=== PATIENT | female | born 1940 | race Caucasian/White ===

== ENCOUNTER 2017-05-15 09:55 | Emergency (ER) | payer MEDICARE, MEDICAID ==
[~2017-05-15] VITALS: Ht 170.2 cm; Wt 70.0 kg
[~2017-05-15 09:55] MED LIST: ASCO500C12 PO; CEPH-357 PO; FERR47.53 PO; IMO2C PO; PARO30TA73 PO; SENN-28 PO; ZOF4T PO
[2017-05-15 11:10] LABS: INR 0.9 INR; PARTIAL THROMBOPLASTIN TIME 23 SECONDS (22-32); PROTHROMBIN TIME 9.7 SECONDS (9.0-12.0)
[2017-05-15 11:19] LABS: ANION GAP 9 (8-16); BILIRUBIN,TOTAL 0.3 MG/DL (0.1-1.0); BLOOD UREA NITROGEN 16 MG/DL (7-18); BUN/CREATININE RATIO 13.7 (6.6-38.0); CALCIUM 9.1 MG/DL (8.5-10.1); CHLORIDE 106 MMOL/L (99-107); CREATININE 1.17 MG/DL (0.40-0.90); GLUCOSE 87 MG/DL (70-104); POTASSIUM 4.3 MMOL/L (3.5-5.1); SODIUM 141 MMOL/L (135-145); TOTAL CARBON DIOXIDE 26.4 MMOL/L (24-32); TOTAL PROTEIN 7.5 G/DL (6.4-8.2); eGFR 45 ML/MIN
[2017-05-15 11:20] LABS: ALANINE AMINOTRANSFERASE 20 U/L (12-78); ALBUMIN/GLOBULIN RATIO 0.7 (1.1-1.5); ALKALINE PHOSPHATASE 85 IU/L (46-116); ASPARTATE AMINO TRANSFERASE 17 U/L (10-37)
[2017-05-15 12:02] LABS: BASOPHILS # (AUTO) 0.2 X10'3 (0-0.2); BASOPHILS % (AUTO) 1.4 % (0-1); EOSINOPHILS # (AUTO) 0.2 X10'3 (0-0.9); HEMATOCRIT 34.5 % (35.0-45.0); HEMOGLOBIN 11.1 g/dl (12.0-16.0); LYMPHOCYTES # (AUTO) 1.7 X10'3 (1.1-4.8); LYMPHOCYTES % (AUTO) 14.5 % (21-51); MEAN CORPUSCULAR HEMOGLOBIN 19.6 PG (27.0-31.0); MEAN CORPUSCULAR HGB CONC 32.3 % (33.0-36.5); MEAN CORPUSCULAR VOLUME 60.6 FL (78-98); MEAN PLATELET VOLUME 8.2 FL (7.4-10.4); MONOCYTES # (AUTO) 0.7 X10'3 (0-0.9); MONOCYTES % (AUTO) 5.8 % (2-12); NEUTROPHILS # (AUTO) 8.8 X10'3 (1.8-7.7); NEUTROPHILS % (AUTO) 76.3 % (42-75); PLATELET COUNT 325 X10'3 (140-440); RED BLOOD COUNT 5.68 X10'6 (4.20-5.60); RED CELL DISTRIBUTION WIDTH 16.8 % (11.5-14.5); WHITE BLOOD COUNT 11.5 X10'3 (4.5-11.0)
[2017-05-15] MEDS ORDERED: LIDOcaine 5% patch TP ONE (12:50)
[2017-05-15 13:17] VITALS: BP 143/65
== END 2017-05-15 13:33 | disposition home or self-care (01) ==
LOC: ER 09:55
DX: M54.5 Low back pain (principal); I95.9 Hypotension, unspecified; R07.9 Chest pain, unspecified; Z79.899 Other long term (current) drug therapy; Z88.5 Allergy status to narcotic agent
CPT/HCPCS: 36415; 71045; 72100; 80053; 84484; 85025; 85610; 85730; 93005; 99285

== ENCOUNTER 2018-10-23 12:17 | Inpatient (IN) | payer MEDICARE, MEDICAID ==
[~2018-10-23] VITALS: Ht 160 cm; Wt 74.0 kg
[2018-10-23 12:55] LABS: BASOPHILS # (AUTO) 0.1 X10'3 (0-0.2); EOSINOPHILS # (AUTO) 0.3 X10'3 (0-0.9); EOSINOPHILS % (AUTO) 3.1 % (0-6); HEMATOCRIT 33.8 % (35.0-45.0); HEMOGLOBIN 10.6 g/dl (12.0-16.0); LYMPHOCYTES # (AUTO) 1.4 X10'3 (1.1-4.8); LYMPHOCYTES % (AUTO) 16.5 % (21-51); MEAN CORPUSCULAR HEMOGLOBIN 19.2 PG (27.0-31.0); MEAN CORPUSCULAR HGB CONC 31.3 g/dL (33.0-36.5); MEAN CORPUSCULAR VOLUME 61.2 FL (78-98); MEAN PLATELET VOLUME 8.5 FL (7.4-10.4); MONOCYTES # (AUTO) 0.6 X10'3 (0-0.9); MONOCYTES % (AUTO) 7.3 % (2-12); NEUTROPHILS # (AUTO) 6.3 X10'3 (1.8-7.7); NEUTROPHILS % (AUTO) 72.1 % (42-75); PLATELET COUNT 358 X10'3 (140-440); RED BLOOD COUNT 5.53 X10'6 (4.20-5.60); RED CELL DISTRIBUTION WIDTH 16.8 % (11.5-14.5); WHITE BLOOD COUNT 8.7 X10'3 (4.5-11.0)
[2018-10-23 13:20] LABS: ALANINE AMINOTRANSFERASE 16 U/L (12-78); ALBUMIN 2.9 G/DL (3.4-5.0); ALBUMIN/GLOBULIN RATIO 0.7 (1.1-1.5); ALKALINE PHOSPHATASE 85 IU/L (46-116); ANION GAP 8 (8-16); ASPARTATE AMINO TRANSFERASE 14 U/L (10-37); BILIRUBIN,TOTAL 0.2 MG/DL (0.1-1.0); BLOOD UREA NITROGEN 17 MG/DL (7-18); BUN/CREATININE RATIO 15.6 (6.6-38.0); CALCIUM 8.6 MG/DL (8.5-10.1); CHLORIDE 103 MMOL/L (99-107); CREATININE 1.09 MG/DL (0.40-0.90); GLUCOSE 99 MG/DL (70-104); POTASSIUM 4.3 MMOL/L (3.5-5.1); SODIUM 140 MMOL/L (135-145); TOTAL CARBON DIOXIDE 29.3 MMOL/L (24-32); eGFR 48 ML/MIN
[2018-10-23] MEDS ORDERED: furosemide 40mg/4ml inj IV ONE (13:20)
[2018-10-23 13:22] LABS: D-DIMER 1.02 MG/L FEU (0-0.50); PARTIAL THROMBOPLASTIN TIME 28 SECONDS (22-32)
[2018-10-23] MEDS ORDERED: iohexol 350MG/ML 100ml bottle IV ONE (13:57)
[2018-10-23 14:22] LABS: CLARITY,URINE SLIGHTLY CLOUDY (Clear); COLOR,URINE STRAW (Yellow); GLUCOSE, URINE NEGATIVE (Neg); KETONES,URINE NEGATIVE (Neg); LEUKOCYTE ESTERASE ,URINE TRACE (Neg); NITRITES, URINE POSITIVE (Neg); OCCULT BLOOD,URINE NEGATIVE (Neg); PROTEIN,URINE NEGATIVE (Neg); UROBILINOGEN,URINE 0.2 E.U/dL (0.2-1.0)
[2018-10-23 14:36] LABS: UA COLLECTION TYPE NON-SPECIFIED
[2018-10-23 14:45] LABS: BACTERIA,URINE 4+ /HPF (Neg); RBC,URINE 0-2 /HPF (0-2); WBC,URINE 30-50 /HPF (0-4)
[2018-10-23 14:46] LABS: SQUAMOUS EPITHELIAL CELL,UR MODERATE /LPF (FEW); WBC CLUMPS,URINE FEW /HPF (NEGATIVE)
[2018-10-23 14:48] LABS: ANISOCYTOSIS 1+; MICROCYTOSIS 2+; PLATELET ESTIMATE NORMAL
[2018-10-23 14:49] LABS: TARGET CELLS FEW
[2018-10-23 14:50] LABS: HYPOCHROMASIA 2+
[2018-10-23] MEDS ORDERED: mag hydrox/Alum hydrox/simeth 30ml oral suspension PO PRN (15:55)
[2018-10-23] MEDS ORDERED: ondansetron/PF 4mg/2ml inj IV PRN (15:55)
[2018-10-23] MEDS ORDERED: acetaminophen 325mg tablet PO PRN (15:55)
[2018-10-23] MEDS ORDERED: magnesium hydroxide 30ml (MOM) UD suspension PO PRN (15:55)
[2018-10-23] MEDS ORDERED: MULT-955 PO (17:06)
[2018-10-23] MEDS ORDERED: [UNRECOGNIZED DRUG - OTHER] OP (17:07)
[2018-10-23] MEDS ORDERED: CARB15DR OP (17:09)
[2018-10-23] MEDS ORDERED: polyvinyl alcohol ophthalmic drops 15ml bottle EACHEYE PRN (17:35)
[2018-10-23 18:00] VITALS: BP 125/71
--- NOTE | 2018-10-23 18:10 | NUR ---
Patient in room PCU 3027. I have received report from Georgina and had the opportunity to ask questions and assume patient care.
[2018-10-23 18:27] VITALS: BP 150/71
--- NOTE | 2018-10-23 18:30 | NUR ---
Problems reprioritized. Patient report given, questions answered & plan of care reviewed with Quita.
--- NOTE | 2018-10-23 18:44 | NUR ---
Patient in room PCU 3027. I have received report from Joanne GRAY and had the opportunity to ask questions and assume patient care.
[2018-10-23] MEDS ORDERED: carVEDilol 3.125mg tablet PO SCH (20:00)
[2018-10-23] MEDS ORDERED: heparin, porcine 5000 units/ml vial SQ SCH (20:00)
--- NOTE | 2018-10-23 20:12 | NUR ---
critical trop 0.67, Dr. Bess awared, he gave order of EKG and next trop to be due in the morning
[2018-10-23] MEDS: normal saline 1000ml 1,000 ML IV SCH (20:33)
[2018-10-23] MEDS: loperamide 2mg capsule PO SCH ×3 (20:34→23:00)
[2018-10-23] MEDS: ondansetron 4mg rapidly disintigrating tab PO SCH (20:34)
[2018-10-23] MEDS: enoxaparin 80mg/0.8ml syringe SUBCUT SCH (20:37)
[2018-10-23 23:00] VITALS: BP 124/54
[2018-10-24] MEDS: loperamide 2mg capsule PO SCH ×5 (01:00→09:00)
[2018-10-24] MEDS: normal saline 1000ml 1,000 ML IV SCH ×2 (01:55→07:26)
[2018-10-24] MEDS: ondansetron 4mg rapidly disintigrating tab PO SCH ×4 (02:44→21:10)
[2018-10-24 05:02] LABS: BASOPHILS # (AUTO) 0.1 X10'3 (0-0.2); BASOPHILS % (AUTO) 1.5 % (0-1); EOSINOPHILS # (AUTO) 0.4 X10'3 (0-0.9); HEMOGLOBIN 10.9 g/dl (12.0-16.0); LYMPHOCYTES % (AUTO) 33.8 % (21-51); MEAN CORPUSCULAR HEMOGLOBIN 19.5 PG (27.0-31.0); MEAN CORPUSCULAR HGB CONC 32.2 g/dL (33.0-36.5); MEAN CORPUSCULAR VOLUME 60.7 FL (78-98); MEAN PLATELET VOLUME 8.9 FL (7.4-10.4); MONOCYTES # (AUTO) 0.7 X10'3 (0-0.9); MONOCYTES % (AUTO) 8.2 % (2-12); NEUTROPHILS # (AUTO) 4.7 X10'3 (1.8-7.7); NEUTROPHILS % (AUTO) 52.5 % (42-75); PLATELET COUNT 373 X10'3 (140-440); RED CELL DISTRIBUTION WIDTH 16.7 % (11.5-14.5)
[2018-10-24 05:23] LABS: ANION GAP 10 (8-16); BLOOD UREA NITROGEN 20 MG/DL (7-18); CALCIUM 8.7 MG/DL (8.5-10.1); CHLORIDE 105 MMOL/L (99-107); CHOL/HDL RATIO 4.6 (0.00-4.99); CHOLESTEROL 265 MG/DL (0-200); CREATININE 1.11 MG/DL (0.40-0.90); GLUCOSE 87 MG/DL (70-104); HDL CHOLESTEROL 58 MG/DL (35-60); LDL CHOLESTEROL 191 MG/DL (50-100); POTASSIUM 3.8 MMOL/L (3.5-5.1); SODIUM 143 MMOL/L (135-145); TRIGLYCERIDES 71 MG/DL (20-135); eGFR 47 ML/MIN
--- NOTE | 2018-10-24 06:25 | NUR ---
Problems reprioritized. Patient report given, questions answered & plan of care reviewed with Joanne GRAY.
[2018-10-24 06:29] LABS: PLATELET ESTIMATE NORMAL
[2018-10-24 06:30] LABS: ANISOCYTOSIS 1+; MICROCYTOSIS 2+; POLYCHROMASIA FEW
[2018-10-24 06:31] LABS: HYPOCHROMASIA 2+; SCHISTOCYTES FEW
--- NOTE | 2018-10-24 06:34 | NUR ---
Patient in room PCU 3012. I have received report from [facility] and had the opportunity to ask questions and assume patient care.
[2018-10-24 07:00] VITALS: BP 135/49
[2018-10-24] MEDS: multivitamins, therapeutics tablet PO SCH (07:23)
[2018-10-24] MEDS: sennosides 8.6mg tablet PO SCH (07:24)
[2018-10-24] MEDS: atorvastatin 20mg tablet PO SCH (07:24)
[2018-10-24] MEDS: aspirin 81mg tablet.DR PO SCH (07:25)
[2018-10-24] MEDS: ascorbic acid 500mg tablet PO SCH (07:25)
[2018-10-24] MEDS: ferrous sulfate 325mg tablet PO SCH (07:25)
[2018-10-24] MEDS: enoxaparin 80mg/0.8ml syringe SUBCUT SCH ×2 (07:26→21:16)
[2018-10-24] MEDS ORDERED: FERROUS SULFATE 325 MG PO SCH (08:00)
[2018-10-24] MEDS ORDERED: non-formulary drug (Multivitamin (Daily Value) 1 TAB) PO SCH (08:00)
[2018-10-24] MEDS ORDERED: loperamide 2mg capsule PO PRN (10:45)
[2018-10-24 11:00] VITALS: BP 149/58
[2018-10-24 15:00] VITALS: BP 139/61
[2018-10-24 18:00] VITALS: BP 150/61
--- NOTE | 2018-10-24 18:23 | NUR ---
Problems reprioritized. Patient report given, questions answered & plan of care reviewed with Quita GRAY .
--- NOTE | 2018-10-24 18:23 | NUR ---
I have reviewed and agree with all interventions, assessments performed and documented by Olesya GRAY.
--- NOTE | 2018-10-24 19:17 | NUR ---
Patient in room PCU 3027. I have received report from Joanne GRAY and had the opportunity to ask questions and assume patient care.
--- NOTE | 2018-10-24 19:18 | NUR ---
Dr. Cuellar went and saw pt, gave out verbal order of coreg, spironolacton 25mg daily, losartan 25mf daily
[2018-10-24] MEDS: carVEDilol 3.125mg tablet PO SCH (21:16)
[2018-10-24 23:00] VITALS: BP 115/75
[2018-10-25 02:00] VITALS: BP 135/60
[2018-10-25] MEDS: ondansetron 4mg rapidly disintigrating tab PO SCH ×3 (02:00→14:00)
[2018-10-25] MEDS: normal saline 1000ml 1,000 ML IV SCH ×2 (03:45→07:55)
[2018-10-25 05:23] LABS: MEAN CORPUSCULAR HEMOGLOBIN 19.4 PG (27.0-31.0)
[2018-10-25 05:28] LABS: HEMATOCRIT 31.1 % (35.0-45.0); HEMOGLOBIN 9.9 g/dl (12.0-16.0); MEAN CORPUSCULAR HGB CONC 31.7 g/dL (33.0-36.5); MEAN CORPUSCULAR VOLUME 61.3 FL (78-98); MEAN PLATELET VOLUME 8.9 FL (7.4-10.4); PLATELET COUNT 299 X10'3 (140-440); RED BLOOD COUNT 5.08 X10'6 (4.20-5.60); RED CELL DISTRIBUTION WIDTH 16.9 % (11.5-14.5); WHITE BLOOD COUNT 7.9 X10'3 (4.5-11.0)
[2018-10-25 05:34] LABS: ALBUMIN 2.5 G/DL (3.4-5.0); ANION GAP 8 (8-16); BLOOD UREA NITROGEN 14 MG/DL (7-18); BUN/CREATININE RATIO 12.7 (6.6-38.0); CALCIUM 8.2 MG/DL (8.5-10.1); CHLORIDE 111 MMOL/L (99-107); GLUCOSE 77 MG/DL (70-104); POTASSIUM 4.1 MMOL/L (3.5-5.1); SODIUM 143 MMOL/L (135-145); TOTAL CARBON DIOXIDE 24.4 MMOL/L (24-32); eGFR 48 ML/MIN
[2018-10-25 06:00] VITALS: BP 152/61
--- NOTE | 2018-10-25 06:32 | NUR ---
Problems reprioritized. Patient report given, questions answered & plan of care reviewed with Tee GRAY.
[2018-10-25 06:41] LABS: TOTAL CELLS COUNTED 100
--- NOTE | 2018-10-25 06:41 | NUR ---
Patient in room PCU 3027. I have received report from ISAAC Devlin and had the opportunity to ask questions and assume patient care.
[2018-10-25 06:44] LABS: ANISOCYTOSIS 1+; MICROCYTOSIS 2+; PLATELET ESTIMATE NORMAL
[2018-10-25 06:45] LABS: HYPOCHROMASIA 1+
[2018-10-25 06:47] LABS: POLYCHROMASIA FEW; TARGET CELLS FEW
[2018-10-25] MEDS: enoxaparin 80mg/0.8ml syringe SUBCUT SCH (07:37)
[2018-10-25] MEDS: ferrous sulfate 325mg tablet PO SCH (07:38)
[2018-10-25] MEDS: aspirin 81mg tablet.DR PO SCH (07:38)
[2018-10-25] MEDS: sennosides 8.6mg tablet PO SCH (07:38)
[2018-10-25] MEDS: ascorbic acid 500mg tablet PO SCH (07:38)
[2018-10-25] MEDS: atorvastatin 20mg tablet PO SCH (07:38)
[2018-10-25] MEDS: multivitamins, therapeutics tablet PO SCH (07:38)
[2018-10-25] MEDS: carVEDilol 3.125mg tablet PO SCH (07:39)
[2018-10-25 11:00] VITALS: BP 131/56
[2018-10-25] MEDS ORDERED: losartan 25mg tablet PO SCH ×2 (11:00→12:00)
[2018-10-25] MEDS ORDERED: spironolactone 25 MG tablet PO SCH (12:00)
--- NOTE | 2018-10-25 13:19 | NUR ---
PAGER ID: [phone] MESSAGE: [id number] Sara Coleman: The daughter was wondering if you could come and speak with them. ISAAC Oliveira Ext [phone]
--- NOTE | 2018-10-25 13:54 | NUR ---
Called report to [facility] at [facility].
--- NOTE | 2018-10-25 15:30 | NUR ---
Marcie cargo pciked up patient to go to [facility] at 1500. IV and tele off, stable for transfer per MD.
== END 2018-10-25 15:00 | DRG 281 ==
LOC: ER 12:17 → PCU 3S 17:40
PROVIDERS: ADMIT Family Medicine; ATTEND Family Medicine
PROC: B32T1ZZ Computerized Tomography (CT Scan) of Left Pulmonary Artery using Low Osmolar Contrast (ICD-10-PCS; principal; 2018-10-23)
PROC: B3201ZZ Computerized Tomography (CT Scan) of Thoracic Aorta using Low Osmolar Contrast (ICD-10-PCS; 2018-10-23)
PROC: B32S1ZZ Computerized Tomography (CT Scan) of Right Pulmonary Artery using Low Osmolar Contrast (ICD-10-PCS; 2018-10-23)
DX: I21.4 Non-ST elevation (NSTEMI) myocardial infarction (principal); I69.354 Hemiplegia and hemiparesis following cerebral infarction affecting left non-dominant side; N39.0 Urinary tract infection, site not specified; I42.0 Dilated cardiomyopathy; Z99.3 Dependence on wheelchair; Z60.2 Problems related to living alone; R00.1 Bradycardia, unspecified; Z66 Do not resuscitate; I25.10 Atherosclerotic heart disease of native coronary artery without angina pectoris; E78.5 Hyperlipidemia, unspecified; Z88.6 Allergy status to analgesic agent; Z79.82 Long term (current) use of aspirin; Z79.899 Other long term (current) drug therapy; I69.322 Dysarthria following cerebral infarction
CPT/HCPCS: 36415; 71045; 71275; 80048; 80053; 80061; 81001; 83880; 84484; 85025; 85379; 85610; 85730; 87077; 87081; 87088; 87186; 93005; 93306; 96374; 99283; G0378; J1650; J1940; J7030; Q9967